=== PATIENT | female | born 1950 | race Caucasian/White ===

== ENCOUNTER 2019-04-25 07:08 | Outpatient (CLI) | payer MEDICARE, SELFPAY ==
--- NOTE | 2019-04-25 | ECG_ITS ---
Measurements Intervals [place] Rate: 72 P: 44 AR: 178 QRS: 12 QRSD: 98 T: 37 QT: 381 QTc: 419 Interpretive Statements SINUS RHYTHM DELAYED PRECORDIAL R/S TRANSITION LOW VOLTAGE- DIFFUSE LEADS BORDERLINE ECG Electronically Signed On 04-25-2019 8:40:49 EMERGENCY DEPARTMENT MANAGER by Bert Vaca D.O.
[2019-04-25 08:56] LABS: Albumin Level 4.4 g/dL (3.5-5.1); Estimated Glomerular Filt Rate > 60
[2019-04-25 09:40] LABS: Thyroid Stimulating Hormone Reflex 0.842 uIU/mL (0.465-4.68)
== END 2019-04-25 07:09 | disposition home or self-care (01) ==
PROVIDERS: PCP Nurse Practitioner Family; Visit Provider Orthopaedic Surgery
DX: M16.11 Unilateral primary osteoarthritis, right hip (principal); E03.9 Hypothyroidism, unspecified; R94.31 Abnormal electrocardiogram [ECG] [EKG]
CPT/HCPCS: 36415; 82040; 82565; 84443; 93005

== ENCOUNTER 2019-05-24 09:13 | Emergency (ER) | payer MEDICARE, SELFPAY ==
[2019-05-24 09:20] VITALS: BP 156/64; PULSE 97; RESP 18; TEMP 36.1; O2SAT 99
--- NOTE | 2019-05-24 10:17 | ED.EYEPROB ---
HPI - Eye Problem General Chief complaint: Eye Problems Stated complaint: left eye pain Time Seen by Provider: 05/24/19 09:18 Source: patient Mode of arrival: ambulatory Limitations: no limitations History of Present Illness HPI Narrative: Patient is a 68-year-old female who presents with acute left eye pain there is a sharp stabbing pain that occurs with movement also noting photophobia but denies any visual changes or other complaints patient notes that the pain began in the middle of the night and has persisted patient denies injury or trauma or similar occurrence in the past patient is currently being treated for bronchitis which she states is getting better. Patient on arrival resting comfortably in the room has not taken anything for her symptoms. Patient denies any medication changes. Patient wears reading glasses but otherwise does not require contacts. Related Data Home Medications Medication Instructions Recorded Confirmed B-complex with vitamin C 1 tablet PO DAILY 04/23/19 04/23/19 allopurinol 300 mg tablet 300 mg PO DAILY 04/23/19 04/23/19 aspirin 325 mg tablet 325 mg PO DAILY 04/23/19 04/23/19 levothyroxine 112 mcg tablet 112 mcg PO DAILY 04/23/19 04/23/19 lisinopril 20 1 tablet PO DAILY 04/23/19 04/23/19 mg-hydrochlorothiazide 25 mg tablet metformin 500 mg tablet,extended 1,000 mg PO DAILY 04/23/19 04/23/19 release 24 hr multivitamin 1 tablet PO DAILY 04/23/19 04/23/19 rosuvastatin 5 mg tablet 5 mg PO DAILY 04/23/19 04/23/19 doxycycline monohydrate 100 mg PO BID 05/24/19 Allergies Allergy/AdvReac Type Severity Reaction Status Date / Time pentazocine Allergy Severe Nausea And Verified 05/24/19 09:24 Vomiting codeine Allergy Intermediate Hives Verified 05/24/19 09:24 atorvastatin Allergy Unknown Unknown Verified 05/24/19 09:24 acetaminophen Allergy Unknown Verified 05/24/19 09:24 HYDROCODONE BIT Allergy Unknown Unknown Uncoded 05/24/19 09:24 Review of Systems Review of Systems: All systems reviewed & are unremarkable except as noted in HPI and below PMFSH Past Medical History Medical History Diabetes Hypertension Hypothyroidism Osteoarthritis of right knee Primary osteoarthritis of right hip Surgical History Surgical History History of (~1988) History of cataract extraction (~2014) History of tonsillectomy (~195) Social History Social History Smoking status: Former smoker Smoking end date: 03/04/10 Alcohol intake: current Gender identity (if verbalized by the patient): Female Exam Narrative: Exam Narrative: GENERAL: Well-appearing, well-nourished, and in no acute distress. HEAD: Normocephalic, atraumatic. EYES: PERRLA and EOMI. no conjunctival injection negative fluorescein uptake. Eyelids everted and unremarkable. Damian pressure in the left eye is 25. Pressure in the right eye is 14. ENT: Nares clear, no rhinorrhea or epistaxis. Mucous membranes moist. Oropharynx without tonsillar hypertrophy exudate or other lesions. NECK: Supple. No adenopathy or masses. CHEST: Clear to auscultation. No respiratory distress. No wheezes rales or rhonchi HEART: Regular rate and rhythm. No murmur heard. EXTREMITIES: Normal range of motion. No edema. SKIN: Warm, dry, no rash. NEURO: No focal deficits. Alert and oriented x3. PSYCH: Normal mood and affect. Course Course Emergency Course: Patient in the room in no distress aware of case findings treatment plan and diagnosis Consultations Consultation #1: Discussed case with [facility] ophthalmology who recommends patient following in clinic tomorrow at 10:30 AM with no further recommendations at this time Date: 05/24/19 Time: 10:44 Vital Signs Vital signs: Vital Signs Temperature 97 F L 05/24/19 09:20 Pulse Rate 97 05/24/19 09:20 Respiratory Rate
== END 2019-05-24 11:03 | disposition home or self-care (01) ==
PROVIDERS: Emergency Provider Emergency Medicine; PCP Nurse Practitioner Family
DX: H57.12 Ocular pain, left eye (principal); E11.9 Type 2 diabetes mellitus without complications; I10 Essential (primary) hypertension; E03.9 Hypothyroidism, unspecified; M17.11 Unilateral primary osteoarthritis, right knee; M16.11 Unilateral primary osteoarthritis, right hip; Z98.49 Cataract extraction status, unspecified eye; Z87.891 Personal history of nicotine dependence; Z79.82 Long term (current) use of aspirin; Z79.84 Long term (current) use of oral hypoglycemic drugs
CPT/HCPCS: 99282; A9270

== ENCOUNTER 2019-05-27 20:26 | Emergency (ER) | payer MEDICARE, SELFPAY ==
--- NOTE | ~2019-05-27 | CT_ITS ---
EXAMINATION: CT abdomen pelvis w con DATE: 05/27/2019 21:13 INDICATION: Right upper quadrant abdominal pain. TECHNIQUE: Computed tomography (CT) of the abdomen and pelvis was performed with 100 mL Omnipaque 350 intravenous contrast. Automated exposure control and iterative reconstruction technique were employe d. The dose-length product was 1080.22 mGy-cm. COMPARISON: None. FINDINGS: The visualized portions of the lung bases demonstrate mild atelectasis. No pleural effusion . The heart size is normal. There are coronary artery calcifications. No pericardial effusion. Calcif ications in the liver and spleen are consistent with old granulomatous disease. The gallbladder, panc reas, and adrenal glands are normal. There is cortical thinning of the kidneys. There is an 11 mm mas s in left kidney measuring soft tissue attenuation. There are no dilated loops of bowel. The appendix is normal. Calcified periportal lymph nodes are consistent with old granulomatous disease. There is no free intraperitoneal fluid. There is severe lower lumbar spondylosis. IMPRESSION: 1. 11 mm left kidney mass, which may be a hemorrhagic cyst or solid neoplasm. Abdomen CT or MRI witho ut and with contrast is recommended. Reviewed, dictated and finalized at location A. IMPRESSION: 1. 11 mm left kidney mass, which may be a hemorrhagic cyst or solid neoplasm. A bdomen CT or MRI without and with contrast is recommended.
[2019-05-27 20:30] VITALS: BP 207/84; PULSE 94; RESP 19; TEMP 36.9; O2SAT 98
--- NOTE | 2019-05-27 20:38 | ED.ABDPAIN ---
HPI - Abdominal Pain General Chief Complaint: Abdominal Pain Stated Complaint: I think gall bladder Time Seen by Provider: 05/27/19 20:30 Source: patient Mode of arrival: ambulatory Limitations: no limitations History of Present Illness HPI narrative: A 68 y/o female presents to the ED with c/o RUQ ABD pain that radiates to her lower back. Pt states that yesterday she started to have pain in her RUQ that resolved last night. She notes that today the RUQ ABD pain came back, so she decided to come to the ED. Pt reports nausea and fever, but denies vomiting, diarrhea, and cough. Her fever was 99.9F at home. She adds that she took Tylenol and Ibuprofen last night, but did not take anything today for the ABD pain. Pt has no other complaints at this time. MD elicited complaint: abdominal pain (RUQ) Onset (ago): day(s) (1) Pain Consistency: intermittent Location: RUQ Radiation: back Associated symptoms: nausea and fever Related Data Home Medications Medication Instructions Recorded Confirmed B-complex with vitamin C 1 tablet PO DAILY 04/23/19 04/23/19 allopurinol 300 mg tablet 300 mg PO DAILY 04/23/19 04/23/19 aspirin 325 mg tablet 325 mg PO DAILY 04/23/19 04/23/19 levothyroxine 112 mcg tablet 112 mcg PO DAILY 04/23/19 04/23/19 lisinopril 20 1 tablet PO DAILY 04/23/19 04/23/19 mg-hydrochlorothiazide 25 mg tablet metformin 500 mg tablet,extended 1,000 mg PO DAILY 04/23/19 04/23/19 release 24 hr multivitamin 1 tablet PO DAILY 04/23/19 04/23/19 rosuvastatin 5 mg tablet 5 mg PO DAILY 04/23/19 04/23/19 doxycycline monohydrate 100 mg PO BID 05/24/19 Allergies Allergy/AdvReac Type Severity Reaction Status Date / Time pentazocine Allergy Severe Nausea And Verified 05/24/19 09:24 Vomiting codeine Allergy Intermediate Hives Verified 05/24/19 09:24 atorvastatin Allergy Unknown Unknown Verified 05/24/19 09:24 hydrocodone Allergy Unknown Unknown Verified 05/27/19 20:45 Review of Systems Review of Systems: All systems reviewed & are unremarkable except as noted in HPI and below Constitutional: Constitutional: Reports fever(s) Respiratory: Respiratory: Denies cough Gastrointestinal: Gastrointestinal: Reports abdominal pain (RUQ that radiates to lower back), Denies diarrhea, Reports nausea and Denies vomiting PMF Past Medical History Medical History COPD (chronic obstructive pulmonary disease) Diabetes Hypertension Hypothyroidism Osteoarthritis of right knee Post-menopausal Primary osteoarthritis of right hip Surgical History Surgical History History of (~1988) History of cataract extraction (~2014) History of tonsillectomy (~1955) Family History Family History Sibling Depression Family history of malignant neoplasm, Onset Age: 13 Mother Family history of chronic obstructive pulmonary disease Family history of coronary artery disease Patient's mother is in good health Father Carcinoma of colon, Onset Age: 69 Patient's father is Family history of lung cancer, Onset Age: 69 Social History Social History Smoking status: Former smoker Smoking end date: 03/04/10 Alcohol intake: current Gender identity (if verbalized by the patient): Female Exam Narrative: Exam Narrative: APPEARANCE: No acute distress, nontoxic, resting in bed HEENT: Normocephalic, atraumatic, OMM RESPIRATORY: No respiratory distress, clear to auscultation bilaterally with no rhonchi wheezing or rales CARDIOVASCULAR: RRR s murmur ABDOMINAL: Soft, nondistended, tender palpation right upper quadrant and epigastric region, no tenderness right lower quadrant, left lower quadrant left upper quadrant, no rebound or guarding MUSCULOSKELETAl: Moves all extremities. No clubbing, cyanosis or edema. NEURO: Awak
[2019-05-27 20:44] LABS: Basophils Absolute Auto 0.1 K/mm3 (0.0-0.1); Basophils Percent Auto 0.5 % (0.2-1.2); Eosinophils Absolute Auto 0.2 K/mm3 (0-0.3); Hematocrit 37.7 % (37.0-47.0); Hemoglobin 11.9 g/dL (12.0-15.0); Immature Granulocyte Absolute 0.04 K/mm3 (0.00-0.031); Immature Granulocyte Percent A 0.4 % (0-0.5); Lymphocytes Absolute Auto 2.78 K/mm3 (0.9-3.2); Lymphocytes Percent Auto 29.8 % (18.3-44.2); Mean Corpuscular HGB Conc 31.6 g/dl (32-36); Mean Corpuscular Hemoglobin 29.2 pg (26-34); Mean Corpuscular Volume 92.4 fl (80-100); Monocytes Absolute Auto 0.7 K/mm3 (0.1-0.6); Monocytes Percent Auto 7.9 % (2.6-8.5); Neutrophils Absolute Auto 5.5 K/mm3 (1.3-6.7); Neutrophils Percent Auto 59.4 % (45.5-73.1); Platelet Count Result 315 k/mm3 (150-375); Red Blood Count 4.08 M/mm3 (4.2-5.4); Red Cell Distribution Width 13.7 % (11.5-14.5); White Blood Count 9.3 K/mm3 (4.5-10.0)
[2019-05-27] MEDS: LACTATED RINGERS 1,000 ML 999 ML IV CONT (20:50)
[2019-05-27] MEDS: ONDANSETRON INJ 4 MG/2 ML VIAL IV PUSH (20:51)
[2019-05-27 20:55] LABS: Alanine Aminotransferase 14 U/L (4-35); Albumin Level 4.6 g/dL (3.5-5.1); Alkaline Phosphatase 98 U/L (38-126); Aspartate Amino Transferase 24 U/L (14-36); Bilirubin,Total 0.3 mg/dL (0.2-1.3); Blood Urea Nitrogen 28 mg/dL (7-17); Calcium 10.1 mg/dL (8.4-10.2); Carbon Dioxide 20 mmol/L (22-30); Chloride 107 mmol/L (98-107); Estimated CRCL calculation 56 ml/min; Estimated Glomerular Filt Rate > 60; Glucose 158 mg/dL (65-105); Lipase 130 U/L (23-300); Potassium 4.3 mmol/L (3.4-5.0); Sodium 139 mmol/L (137-145)
[2019-05-27 21:02] VITALS: BP 155/73; PULSE 80; RESP 18; O2SAT 95
[2019-05-27 21:46] VITALS: BP 153/61; PULSE 78; RESP 16; O2SAT 95
[2019-05-27 22:48] LABS: Add Urine Microscopic? NO; Appearance Urine Clear (Clear); Bilirubin Urine Negative (Negative); Blood Urine Negative (Negative); Color Urine Straw (Yellow); Glucose Urine UA Negative (Negative); Ketones Urine Negative (Negative); Leukocyte Esterase Ur Negative LEU/UL (Negative); Nitrate Urine Negative (Negative); Protein Urine Negative (Negative); Urobilinogen Urine Negative mg/dL (<2.0)
[2019-05-27 22:51] LABS: Specific Grav Ur 1.051 (1.001-1.035)
[2019-05-27 22:55] VITALS: BP 150/68; PULSE 78; RESP 16; TEMP 36.7; O2SAT 97
== END 2019-05-27 23:10 | disposition home or self-care (01) ==
PROVIDERS: Emergency Provider Emergency Medicine; PCP Nurse Practitioner Family
DX: R10.11 Right upper quadrant pain (principal); J44.9 Chronic obstructive pulmonary disease, unspecified; E11.9 Type 2 diabetes mellitus without complications; I10 Essential (primary) hypertension; E03.9 Hypothyroidism, unspecified; M16.11 Unilateral primary osteoarthritis, right hip; Z98.49 Cataract extraction status, unspecified eye; Z87.891 Personal history of nicotine dependence; Z79.82 Long term (current) use of aspirin; Z79.84 Long term (current) use of oral hypoglycemic drugs; N28.89 Other specified disorders of kidney and ureter
CPT/HCPCS: 36415; 74177; 80053; 81003; 83690; 85025; 96361; 96365; 96375; 99284; J0131; J2405; J7120; Q9967

== ENCOUNTER 2019-06-10 07:29 | Outpatient (CLI) | payer MEDICARE, SELFPAY ==
[2019-06-10 08:35] LABS: Basophils Percent Auto 0.7 % (0.2-1.2); Eosinophils Absolute Auto 0.2 K/mm3 (0-0.3); Hematocrit 35.3 % (37.0-47.0); Hemoglobin 11.5 g/dL (12.0-15.0); Immature Granulocyte Absolute 0.02 K/mm3 (0.00-0.031); Immature Granulocyte Percent A 0.4 % (0-0.5); Immature Reticulocyte Fraction 13.3 % (3.0-15.9); Lymphocytes Absolute Auto 2.04 K/mm3 (0.9-3.2); Lymphocytes Percent Auto 37.2 % (18.3-44.2); Mean Corpuscular HGB Conc 32.6 g/dl (32-36); Mean Corpuscular Hemoglobin 29.5 pg (26-34); Mean Corpuscular Volume 90.5 fl (80-100); Monocytes Absolute Auto 0.5 K/mm3 (0.1-0.6); Monocytes Percent Auto 8.9 % (2.6-8.5); Neutrophils Absolute Auto 2.7 K/mm3 (1.3-6.7); Neutrophils Percent Auto 48.8 % (45.5-73.1); Platelet Count Result 270 k/mm3 (150-375); Red Cell Distribution Width 13.6 % (11.5-14.5); Reticulocyte Hemoglobin Conten 34.8 pg (28.2-35.7); Reticulocyte Percent 1.52 % (0.7-4.3); Reticulocytes Absolute 0.06 B/L (32.2-175.7); White Blood Count 5.5 K/mm3 (4.5-10.0)
[2019-06-10 08:37] LABS: Hemoglobin A1C 7.2 % (<5.7)
[2019-06-10 08:43] LABS: LDL Cholesterol Direct 82 mg/dL
[2019-06-10 08:50] LABS: Cholesterol 158 mg/dL (0-200); HDL Direct 46 mg/dL; Triglycerides 113 mg/dL (<150); Uric Acid 4.9 mg/dL (2.5-7.5)
[2019-06-10 08:58] LABS: Iron 46 ug/dL (37-170)
[2019-06-10 09:01] LABS: Microalbumin Urine Random 31.3 mg/L (0-16.7)
[2019-06-10 09:04] LABS: Creatinine Urine 98.5 mg/dL; MALB Creatinine Ratio 31.8 mg/g (0-30)
[2019-06-10 09:12] LABS: Parathyroid Intact 32.7 pg/mL (7.5-53.5)
[2019-06-10 09:16] LABS: Vitamin D 25 Hydroxy 43.5 ng/mL
[2019-06-10 09:42] LABS: Folic Acid > 20.0 ng/mL (2.76->20)
[2019-06-11 21:03] LABS: Triiodothyronine T3 Free 2.5 pg/mL (2.3-4.2)
== END 2019-06-10 07:30 | disposition home or self-care (01) ==
PROVIDERS: Visit Provider Internal Medicine
DX: Z11.59 Encounter for screening for other viral diseases (principal); D64.9 Anemia, unspecified; E11.9 Type 2 diabetes mellitus without complications; E03.9 Hypothyroidism, unspecified; I10 Essential (primary) hypertension; M10.9 Gout, unspecified; M85.80 Other specified disorders of bone density and structure, unspecified site; E55.9 Vitamin D deficiency, unspecified
CPT/HCPCS: 36415; 80061; 82043; 82306; 82607; 82728; 82746; 83036; 83540; 83970; 84443; 84481; 84550; 85025; 85046

== ENCOUNTER 2019-10-01 06:59 | Outpatient (CLI) | payer MEDICARE, SELFPAY ==
[2019-10-01 07:44] LABS: Basophils Percent Auto 0.4 % (0.2-1.2); Eosinophils Absolute Auto 0.4 K/mm3 (0-0.3); Eosinophils Percent Auto 5.2 % (0-4.4); Hematocrit 34.5 % (37.0-47.0); Hemoglobin 11.3 g/dL (12.0-15.0); Immature Granulocyte Absolute 0.03 K/mm3 (0.00-0.031); Immature Granulocyte Percent A 0.4 % (0-0.5); Immature Reticulocyte Fraction 11.2 % (3.0-15.9); Lymphocytes Absolute Auto 2.02 K/mm3 (0.9-3.2); Lymphocytes Percent Auto 26.8 % (18.3-44.2); Mean Corpuscular HGB Conc 32.8 g/dl (32-36); Mean Corpuscular Hemoglobin 29.3 pg (26-34); Mean Corpuscular Volume 89.4 fl (80-100); Monocytes Absolute Auto 0.6 K/mm3 (0.1-0.6); Monocytes Percent Auto 8.2 % (2.6-8.5); Neutrophils Absolute Auto 4.5 K/mm3 (1.3-6.7); Platelet Count Result 240 k/mm3 (150-375); Red Blood Count 3.86 M/mm3 (4.2-5.4); Red Cell Distribution Width 14.4 % (11.5-14.5); Reticulocyte Hemoglobin Conten 33.4 pg (28.2-35.7); Reticulocyte Percent 1.23 % (0.7-4.3); Reticulocytes Absolute 0.05 B/L (32.2-175.7); White Blood Count 7.6 K/mm3 (4.5-10.0)
[2019-10-01 07:57] LABS: Cholesterol 139 mg/dL (0-200); HDL Direct 42 mg/dL; Triglycerides 102 mg/dL (<150); Uric Acid 5.8 mg/dL (2.5-7.5)
[2019-10-01 08:08] LABS: LDL Cholesterol Direct 69 mg/dL; Parathyroid Intact 51.8 pg/mL (7.5-53.5)
[2019-10-01 08:55] LABS: Creatinine Urine 138.4 mg/dL
[2019-10-01 09:00] LABS: MALB Creatinine Ratio 9.5 mg/g (0-30); Microalbumin Urine Random 13.2 mg/L (0-16.7)
[2019-10-01 09:44] LABS: Iron 54 ug/dL (37-170)
[2019-10-01 10:55] LABS: Hemoglobin A1C 7.1 % (<5.7)
[2019-10-01 17:56] LABS: Percent Iron Saturation 17 % (20-50)
== END 2019-10-01 07:00 | disposition home or self-care (01) ==
LOC: ANHLAB 07:03
PROVIDERS: Visit Provider Internal Medicine
DX: E11.9 Type 2 diabetes mellitus without complications (principal); I10 Essential (primary) hypertension; M85.80 Other specified disorders of bone density and structure, unspecified site
CPT/HCPCS: 36415; 80061; 82043; 83036; 83540; 83550; 83970; 84550; 85025; 85046

== ENCOUNTER 2020-12-16 09:44 | Outpatient (CLI) | payer MEDICARE, SELFPAY ==
[2020-12-16 10:44] LABS: Basophils Percent Auto 0.8 % (0.2-1.2); Eosinophils Absolute Auto 0.1 K/mm3 (0-0.3); Eosinophils Percent Auto 2.7 % (0-4.4); Hematocrit 35.6 % (37.0-47.0); Hemoglobin 10.9 g/dL (12.0-15.0); Immature Granulocyte Absolute 0.02 K/mm3 (0.00-0.031); Immature Granulocyte Percent A 0.4 % (0-0.5); Lymphocytes Absolute Auto 1.94 K/mm3 (0.9-3.2); Lymphocytes Percent Auto 37.7 % (18.3-44.2); Mean Corpuscular HGB Conc 30.6 g/dl (32-36); Mean Corpuscular Hemoglobin 27.3 pg (26-34); Mean Corpuscular Volume 89.2 fl (80-100); Mean Platelet Volume 11.1 fl (7.4-10.4); Monocytes Absolute Auto 0.5 K/mm3 (0.1-0.6); Monocytes Percent Auto 10.5 % (2.6-8.5); Neutrophils Absolute Auto 2.5 K/mm3 (1.3-6.7); Neutrophils Percent Auto 47.9 % (45.5-73.1); Platelet Count Result 266 k/mm3 (150-375); Red Blood Count 3.99 M/mm3 (4.2-5.4); White Blood Count 5.2 K/mm3 (4.5-10.0)
[2020-12-16 11:10] LABS: Alanine Aminotransferase 21 U/L (4-35); Albumin Level 4.9 g/dL (3.5-5.1); Alkaline Phosphatase 93 U/L (38-126); Anion Gap 14 mmol/L (8-16); Aspartate Amino Transferase 35 U/L (14-36); Bilirubin,Total 0.7 mg/dL (0.2-1.3); Blood Urea Nitrogen 18 mg/dL (7-17); Calcium 10.8 mg/dL (8.4-10.2); Carbon Dioxide 23 mmol/L (22-30); Chloride 107 mmol/L (98-107); Cholesterol 157 mg/dL (0-200); Estimated Glomerular Filt Rate > 60; Glucose 170 mg/dL (65-110); HDL Direct 45 mg/dL; Potassium 5.3 mmol/L (3.4-5.0); Sodium 144 mmol/L (137-145); Triglycerides 215 mg/dL (<150); Uric Acid 5.1 mg/dL (2.5-7.5)
[2020-12-16 11:21] LABS: LDL Cholesterol Direct 68 mg/dL; Transferrin 294 mg/dL (206-381)
[2020-12-16 11:50] LABS: Thyroid Stimulating Hormone < 0.015 uIU/mL (0.465-4.680)
[2020-12-16 12:38] LABS: Creatinine Urine 75.3 mg/dL
[2020-12-16 12:43] LABS: MALB Creatinine Ratio 50.7 mg/g (0-30); Microalbumin Urine Random 38.2 mg/L (0-16.7)
[2020-12-16 12:54] LABS: Iron 94 ug/dL (37-170)
[2020-12-16 13:03] LABS: Percent Iron Saturation 24 % (20-50)
[2020-12-16 13:23] LABS: Free T4 Free Thyroxine 1.97 ng/mL (0.78-2.19)
[2020-12-16 13:34] LABS: Hemoglobin A1C 8.7 % (<5.7)
[2020-12-16 15:54] LABS: Vitamin D 25 Hydroxy 67.5 ng/mL
== END 2020-12-16 09:45 | disposition home or self-care (01) ==
DX: E11.9 Type 2 diabetes mellitus without complications (principal); Z51.81 Encounter for therapeutic drug level monitoring; Z79.4 Long term (current) use of insulin; E03.9 Hypothyroidism, unspecified; E55.9 Vitamin D deficiency, unspecified; Z86.2 Personal history of diseases of the blood and blood-forming organs and certain disorders involving the immune mechanism; Z87.39 Personal history of other diseases of the musculoskeletal system and connective tissue; D50.9 Iron deficiency anemia, unspecified
CPT/HCPCS: 36415; 80053; 80061; 82043; 82306; 82607; 82728; 83036; 83540; 83550; 84439; 84443; 84466; 84550; 85025